=== PATIENT | female | born 1960 | race African-American/Black ===

== ENCOUNTER 2017-01-22 10:48 | Emergency (ER) | payer OTHER ==
[2017-01-22 11:02] VITALS: BP 139/85
[2017-01-22] MEDS ORDERED: ORPHENADRINE CITRATE 30 MG/ML VIAL IM ONE (11:14)
[2017-01-22] MEDS ORDERED: KETOROLAC TROMETHAMINE 60 MG/2 ML VIAL IM ONE ×2 (11:14→11:19)
[2017-01-22] MEDS ORDERED: ORPHENADRINE CITRATE 30 MG/ML VIAL ONE (11:19)
--- OUTSIDE RECORDS SUMMARY | 2017-01-22 11:32 | XMS REPORT | Continuity of Care Document ---
:1960 Author Organization [facility] ([facility] [place]) Address [address] [place] [address] Phone [phone] Care Team Providers Name Role Phone Shalini Wilson Primary Care Provider [phone] Source Comments This disclosure is being made pursuant to the Care Everywhere program, applicable federal and state laws, and may not contain all informaitonavailable regarding this patient.[facility] ([facility] [place]) Active Allergies and Adverse Reactions No Known Allergies Current Medications Prescription Sig. Disp. Refills Start Date End Date Status multivitamin tablet Take 1 Tab by mouth Active daily. ibuprofen 800 mg Take 1 Tab by mouth 90 Tab 5 11/05/2012 Active tablet every 8 hours as needed. Indications: PAIN levothyroxine 125 mcg Take 1 Tab by mouth 60 Tab 2 08/23/2013 Active tablet every morning before breakfast. 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 Retinal holes 06/08/2015 Vitreous floaters of right eye 06/04/2015 Elevated BP 08/19/2013 Insomnia 01/15/2013 Hypothyroid 03/25/2012 Resolved Problems Problem Noted Date Resolved Date Cough 07/15/2013 08/19/2013 Bronchitis, not specified as acute or chronic 07/15/2013 08/19/2013 Laryngitis 07/15/2013 08/19/2013 Arm pain 01/15/2013 08/19/2013 Health counseling 03/24/2012 08/19/2013 Immunizations Name Dates Previously Given Next Due Influenza, PF 06/24/2012 Influenza, quadrivalent PF 08/19/2013 Tdap 11/05/2012 Social History Tobacco Use Types Packs/Day Years Used Date Never Smoker Smokeless Tobacco: Never Used Alcohol Use Drinks/Week oz/Week Comments No 1 drink per month Last Filed Vital Signs Vital Sign Reading Time Taken Blood Pressure 144/90 08/19/2013 2:45 PM CHEESEMAKER Pulse 88 08/19/2013 2:20 PM CHEESEMAKER Temperature 36.4 C (97.5 F) 08/19/2013 2:20 PM CHEESEMAKER Respiratory Rate 16 07/15/2013 11:20 AM CHEESEMAKER Height 1.575 m (5' 2.01") 01/14/2013 4:13 PM CDT Weight 91.536 kg (201 lb 12.8 oz) 08/19/2013 2:20 PM CHEESEMAKER Body Mass Index 36.9 08/19/2013 2:20 PM CHEESEMAKER Oxygen Saturation 99% 07/15/2013 11:20 AM CHEESEMAKER Plan of Care Patient Goal Type Goal Diet Have 3 meals a day Exercise Exercise 3x per week (30 min per time) Weight Weight below 73 kg (160 lb) Health Maintenance Due Date Last Done Comments Hepatitis B Vaccine (1 of 3 - Primary 1960 Series) MMR Vaccine 1979 Cervical Cancer Screening 1991 Colonoscopy 2011 FOBT Colon Cancer Screening 2011 Sigmoidoscopy Colon Cancer Screening 2011 Mammogram 11/05/2013 11/05/2012 Influenza Vaccine: Seasonal (#1) 03/17/2016 08/19/2013, 06/24/2012 Lipid Disorder Screening 03/24/2017 03/24/2012 Td Vaccine 11/05/2022 11/05/2012 Tdap Vaccine Completed 11/05/2012 HCV Screening Completed 08/19/2013 Results from Last 3 Months Not on file
--- OUTSIDE RECORDS SUMMARY | 2017-01-22 11:33 | XMS REPORT | Summary of Care ---
:1960 Author Organization [facility] Address [address] [place] [id number]- Care Team Providers Name Role Phone Shalini Wilson Primary Care Physician Encounter Date(s): 10/02/16 - 10/04/[address] [address]- [facility] Discharge Disposition: 01 Discharged to Home or Self Care Attending Physician: Wyatt Avila DO Admitting Physician: Wyatt Avila DO Vital Signs Most recent to oldest [Reference Range]: 1 Heart Rate Monitored [60-100 bpm] 67 bpm (10/02/16 8:50 AM) Respiratory Rate [12-20 br/min] 18 br/min (10/02/16 8:50 AM) SpO2 [90-100 %] 99 % (10/02/16 8:50 AM) Blood Pressure [90-130/60-90 mmHg] 150/96mmHg *HI* (10/02/16 8:50 AM) Problem List Condition Effective Dates Status Health Status Informant ASTHMA(Confirmed) Active Hypoactive thyroid(Confirmed) Active Allergies, Adverse Reactions, Alerts No Known Medication Allergies Medications Advair Diskus 100 mcg-50 mcg inhalation powder 1 puff(s), Inhale, BID, # 28 EA, 0 Refill(s), Start Date: 12/11/14 15:08:00 CDT Start Date: 12/11/14 Status: Orderedcephalexin 500 mg oral capsule 1 cap(s), Oral, q12hr, # 20 cap(s), 0 Refill(s), Start Date: 07/29/16 16:10:00 RUBBER TESTER Start Date: 07/29/16 Stop Date: 09/22/16 Status: Completedomeprazole 20 mg oral delayed release capsule 1 cap(s), Oral, Daily, # 30 cap(s), 0 Refill(s), Start Date: 07/29/16 16:11:00 RUBBER TESTER Start Date: 07/29/16 Status: OrderedpredniSONE 20 mg oral tablet 1 tab(s), Oral, Daily, # 10 tab(s), 0 Refill(s), Start Date: 07/29/16 16:11:00 RUBBER TESTER Start Date: 07/29/16 Stop Date: 09/22/16 Status: CompletedPriLOSEC 20 mg oral delayed release capsule 1 cap(s), Oral, Daily, # 30 cap(s), 0 Refill(s), Start Date: 12/25/14 11:19:00 CDT, Pharmacy: [facility] [id number] Start Date: 12/25/14 Stop Date: 07/29/16 Status: DiscontinuedSingulair 10 mg oral tablet 1 tab(s), Oral, qPM, # 30 tab(s), 0 Refill(s), Start Date: 12/11/14 15:07:00 CDT Start Date: 12/11/14 Status: OrderedSpiriva 18 mcg inhalation capsule 18 mcg, Inhale, Daily, 0 Refill(s), Start Date: 12/21/14 12:41:00 CDT Start Date: 12/21/14 Status: OrderedSynthroid 88 mcg (0.088 mg) oral tablet 1 tab(s), Oral, Daily, # 30 tab(s), 0 Refill(s), Start Date: 12/11/14 15:07:00 CDT Start Date: 12/11/14 Status: OrderedZyrTEC 10 mg oral tablet 1 tab(s), Oral, Daily, # 30 tab(s), 0 Refill(s), Start Date: 12/11/14 15:08:00 CDT Start Date: 12/11/14 Stop Date: 12/21/14 Status: Completed Results No data available for this section Immunizations No data available for this section Procedures Procedure Date Related Diagnosis Body Site 24 Hour PH Study1 10/02/16 Esophageal Manometry2 10/02/16 Esophageal Dilation3 09/24/16 Esophageal Dilatation4 12/25/14 Colonoscopy 01/15/13 Arthroscopy of knee Hysterectomy 1auto-populated from documented surgical [id number] from documented surgical [id number] from documented surgical [id number] from documented surgical case Social History No data available for this section Assessment and Plan No data available for this section
--- OUTSIDE RECORDS SUMMARY | 2017-01-22 11:33 | XMS REPORT | Summary of Care ---
:1960 Author Organization [facility] Address [address] [place] [address]- Care Team Providers Name Role Phone Shalini Wilson Primary Care Physician Encounter Date(s): 09/24/16 - 09/24/16 [facility] [address] [place] [address]- [facility] Discharge Disposition: 01 Discharged to Home or Self Care Attending Physician: Wyatt Avila DO Admitting Physician: Wyatt Avila DO Vital Signs Most recent to oldest 1 2 3 [Reference Range]: Temperature Temporal Artery 36.5 DegC 36.0 DegC [36-38 DegC] (09/24/16 12:38 PM) (09/24/16 11:05 AM) Heart Rate Monitored [60-100 63 bpm 62 bpm 75 bpm bpm] (09/24/16 1:34 PM) (09/24/16 1:04 PM) (09/24/16 12:44 PM) Respiratory Rate [12-20 br/min] 18 br/min 16 br/min 18 br/min (09/24/16 1:34 PM) (09/24/16 1:04 PM) (09/24/16 12:44 PM) SpO2 100 % 100 % 95 % (09/24/16 1:34 PM) (09/24/16 1:04 PM) (09/24/16 12:44 PM) SpO2 Location Right hand Right hand (09/24/16 12:44 PM) (09/24/16 12:38 PM) Blood Pressure [90-130/60-90 167/75mmHg 115/60mmHg 112/57mmHg mmHg] *HI* (09/24/16 1:04 PM) (09/24/16 12:44 PM) (09/24/16 1:34 PM) Most recent to oldest [Reference Range]: 1 2 3 Height/Length Measured 154 cm (09/24/16 11:05 AM) Height/Length Estimated 154.9 cm (09/22/16 3:13 PM) Weight Estimated 90.7 kg (09/22/16 3:13 PM) Weight Dosing 98.0 kg (09/24/16 11:05 AM) Weight Measured 98.0 kg (09/24/16 11:05 AM) Problem List Condition Effective Dates Status [...] cap(s), 0 Refill(s), Start Date: 07/29/16 16:10:00 ALLERGY SPECIALIST Start Date: 07/29/16 Stop Date: 09/22/16 Status: Completedomeprazole 20 mg oral delayed release capsule 1 cap(s), Oral, Daily, # 30 cap(s), 0 Refill(s), Start Date: 07/29/16 16:11:00 ALLERGY SPECIALIST Start Date: 07/29/16 Status: OrderedpredniSONE 20 mg oral tablet 1 tab(s), Oral, Daily, # 10 tab(s), 0 Refill(s), Start Date: 07/29/16 16:11:00 ALLERGY SPECIALIST Start Date: 07/29/16 Stop Date: 09/22/16 Status: CompletedPriLOSEC 20 mg oral delayed release capsule 1 cap(s), Oral, Daily, # 30 cap(s), 0 Refill(s), Start Date: 12/25/14 11:19:00 CDT, Pharmacy: [facility] [id number] Start Date: 12/25/14 Stop Date: 07/29/16 Status: [...] 12/11/14 Stop Date: 12/21/14 Status: Completed Results Patient Viewable Results Most recent to oldest [Reference Range]: 1 2 AN - Fi O2 42 % % 24 % % (09/24/16 12:35 PM) (09/24/16 12:30 PM) Immunizations No data available for this section Procedures Procedure Date Related Diagnosis Body Site Esophageal Dilation1 09/24/16 Esophageal Dilatation2 12/25/14 Colonoscopy 01/15/13 Arthroscopy of knee Hysterectomy 1auto-populated from documented surgical [id number] from documented surgical case Social History No data available for this section Assessment and Plan No data available for this section
--- OUTSIDE RECORDS SUMMARY | 2017-01-22 11:33 | XMS REPORT | Summary of Care ---
:1960 Author Organization [facility] Address [address] [place] [address] [address] [place] [address] Care Team Providers Name Role Phone SteveShalini Latonya Primary Care Physician Encounter Date(s): 10/09/16 - 10/09/16 [facility] [address] [place] [address] [address] [place] [address]- Discharge Diagnosis: GERD (gastroesophageal reflux disease) Discharge Disposition: 01 Discharged to Home or Self Care Attending Physician: DARIAN Braden Referring Physician: Wyatt Avila DO Vital Signs Most recent to oldest [Reference Range]: 1 Peripheral Pulse Rate [60-100 bpm] 75 bpm (10/09/16 2:27 PM) Blood Pressure [90-130/60-90 mmHg] 146/99mmHg *HI* (10/09/16 2:27 PM) Mean Arterial Pressure, Cuff 115 mmHg (10/09/16 2:27 PM) Most recent to oldest [Reference Range]: 1 Height/Length Measured 154 cm (10/09/16 2:27 PM) Weight Dosing 97.4 kg (10/09/16 2:27 PM) Weight Measured 97.4 kg (10/09/16 2:27 PM) BSA Measured 1.94 m2 (10/09/16 2:27 PM) Body Mass Index Measured 41.07 kg/m2 (10/09/16 2:27 PM) Problem List Condition Effective Dates Status Health [...] cap(s), 0 Refill(s), Start Date: 07/29/16 16:10:00 WOODWORKING BENCH CARPENTER Start Date: 07/29/16 Stop Date: 09/22/16 Status: CompletedDexilant 30 mg oral delayed release capsule 1 cap(s), Oral, Daily, # 30 cap(s), 1 Refill(s), Start Date: 10/09/16 15:12:00 WOODWORKING BENCH CARPENTER, Pharmacy: [id number] Start Date: 10/09/16 Status: Orderedomeprazole 20 mg oral delayed release capsule 1 cap(s), Oral, Daily, # 30 cap(s), 0 Refill(s), Start Date: 07/29/16 16:11:00 WOODWORKING BENCH CARPENTER Start Date: 07/29/16 Status: OrderedpredniSONE 20 mg oral tablet 1 tab(s), Oral, Daily, # 10 tab(s), 0 Refill(s), Start Date: 07/29/16 16:11:00 WOODWORKING BENCH CARPENTER Start Date: 07/29/16 Stop Date: 09/22/16 Status: CompletedPriLOSEC 20 mg oral delayed release capsule 1 cap(s), Oral, Daily, # 30 cap(s), 0 Refill(s), Start Date: 12/25/14 11:19:00 CDT, Pharmacy: [id number] Start Date: 12/25/14 Stop Date: 07/29/16 Status: [...] of knee Hysterectomy 1auto-populated from documented surgical [id number] from documented surgical [id number] from documented surgical [id number] from documented surgical case Social History No data available for this section Assessment and Plan No data available for this section
--- NOTE | 2017-01-22 12:08 | ERNOTE ---
Back Pain ER HPI Time Seen by Provider: 01/22/17 11:04 Source: patient Exam Limitations: no limitations Immunizations: IMMUNIZATION HX Immunizations Up to Date Yes History of Influenza Vaccine No Hx Pneumococcal Vaccination Yes Allergies/Adverse Reactions: Allergies No Known Allergies Allergy (Verified 01/22/17 10:59) Home Medications: HOME MEDICATIONS Ibuprofen [Motrin] 800 mg PO Q8H PRN 07/16/13 [Last Taken Unknown] Albuterol Sulfate 2.5 mg IH Q6H PRN 04/30/15 [Last Taken Unknown] Fluticasone/Salmeterol [Advair 500-50 Diskus] 1 puff IH BID 04/30/15 [Last Taken Unknown] Levothyroxine Sodium [Synthroid] 88 mcg PO DAILY 04/30/15 [Last Taken Unknown] Montelukast Sodium [Singulair] 10 mg PO DAILY 04/30/15 [Last Taken Unknown] Multivitamins [Multivitamin Barb] 1 cap PO DAILY 04/30/15 [Last Taken Unknown] Tiotropium Wisner [Spiriva] 1 cap IH DAILY 04/30/15 [Last Taken Unknown] Albuterol Sulfate [Proair Hfa] 1 - 2 puff IH Q4H PRN #1 inhaler 06/19/16 [Last Taken Unknown] Cyclobenzaprine HCl [Flexeril] 10 mg PO TID PRN #30 tab 01/22/17 [Last Taken Unknown] Naproxen [Naprosyn] 500 mg PO BID #60 tablet 01/22/17 [Last Taken Unknown] Narrative: Patient is unclear exactly what happened but she started to develop some thoracic muscle spasms and pain over the past several days. She denies any injury or any repetitive use type trauma either. Timing: Reports: constant Quality/Severity: Reports: moderate Location of pain: Reports: mid back Activities at Onset: Reports: none Recent Injury?: Reports: no Modifying Factors - (Improves): Reports: nothing Modifying Factors - (Worsens): Reports: movement to right, movement to left Associated Symptoms: Reports: none Review of Systems - Review of Systems Constitutional: Present: See HPI EYE: Present: no symptoms reported ENT: Present: no symptoms reported Respiratory: Present: no symptoms reported Cardiology: Present: no symptoms reported Gastrointestinal/Abdominal: Present: no symptoms reported Genitourinary: Present: no symptoms reported Musculoskeletal: Present: back pain, muscle stiffness Skin: Present: no symptoms reported Neurological: Present: no symptoms reported Endocrine: Present: no symptoms reported Hematologic/Lymphatic: Present: no symptoms reported Psych: Present: no symptoms reported - Patient's Past Medical History Patient History - Medical: GERD, Hypothyroidism, Migraines Patient History - Cardiac/Respiratory: Asthma Patient History - Cancer: No Hx of Cancer Patient History - Surgical Procedures: Colonoscopy, , EGD, Hysterectomy , Other Patient History - Other: None LMP (females 10-50): Menopausal - Family History Mother Family History - Medical: Family History - Cardiac/Respiratory: CHF Father Family History - Medical: Family History - Cardiac/Respiratory: CVA/Stroke, Myocardial Infarction - Social History Living Situations: home Abuse History: No History of abuse Psych History: No pertinent hx Smoking Status: Never smoker Alcohol Use: none Drug Use: none - Immunizations Immunizations Up to Date: Yes Hx Pneumococcal Vaccination: Yes History of Influenza Vaccine: No Physical Exam - Physical Exam General Appearance: Present: wd/wn, alert, moderate distress Eye Exam: Normal inspection: bilateral, PERRL: bilateral Ears, Nose, Throat: Present: normal ENT inspection, H, normal pharynx Neck: Present: normal inspection, nontender Respiratory: Present: no respiratory distress, normal breath sounds, no accessory muscle use, lungs clear, chest tenderness, other - thoracic muscle spasms Cardiovascular/Chest: Present: regular rate, rhythm, no murmur, normal peripheral pulses Gastrointestinal/Abdominal: Present: normal bowel sounds, nontender, nondistended, soft, no organomegaly Rectal Exam: Present: deferred Back Exam: Present: normal inspection, normal range of motion Extremity Exam: Present: normal inspection, non-tender, no edema, normal range of motion Neurological Exam: Present: alert, oriented, normal mood/affect Skin Exam: Present: normal color, warm/dry Lymphatic Exam: Present: no adenopathy ED Progress - Vital Signs Patient's Vital Signs:: I have reviewed the patient's vital signs. Vital Signs: Vital Signs 01/22/17 10:55 Temperature 36.9 C Pulse Rate 62 Respiratory 12 Rate Blood Pressure 139/85 O2 Sat by Pulse 97 Oximetry - X-Ray X-Ray #1 X-Ray: chest Interpretation: Reviewed by me - Progress/Reassessment Chief Complaint: Back Pain Progress:: Improved Plan - Plan Plan: Patient feels better after the Toradol and Norflex. Patient was started on a muscle relaxer and a nonsteroidal and she will follow up with her own family physician in 7-10 days. Departure Clinical Impression: Chest wall muscle strain Qualifiers: Encounter type: initial encounter Qualified Code(s): S29.011A - Strain of muscle and tendon of front wall of thorax, initial encounter - Departure Disposition: Home self-care Condition: Good Instructions: Chest Wall Pain, [id number], Muscle Cramps and Spasms, Easy-to- Read Referrals: Shalini Wilson MD [Primary Care Provider] - Prescriptions: Cyclobenzaprine HCl [Flexeril] 10 mg PO TID PRN #30 tab PRN Reason: MUSCLE SPASMS Naproxen [Naprosyn] 500 mg PO BID #60 tablet
== END 2017-01-22 12:12 | disposition home or self-care (01) ==
LOC: ER 10:48
DX: S29.011A Strain of muscle and tendon of front wall of thorax, initial encounter (principal); K21.9 Gastro-esophageal reflux disease without esophagitis; E03.9 Hypothyroidism, unspecified